=== PATIENT | male | born 1960 | race Caucasian/White ===

== ENCOUNTER → 2024-02-05 06:41 | Outpatient (REF) | payer MEDICARE, BC, SELFPAY ==
[2024-02-05 07:39] LABS: ALT (SGPT) 34 U/L (0-50); AST (SGOT) 38 U/L (17-59); Albumin 4.2 g/dl (3.5-5.0); Alkaline Phosphatase 57 U/L (38-126); Blood Urea Nitrogen 19 mg/dl (9-20); Calcium 9.1 mg/dl (8.4-10.2); Carbon Dioxide 27 mmol/L (22-30); Chloride 107 mmol/L (98-107); Glucose 115 mg/dl (70-99); HDL Cholesterol 78 mg/dl; LDL Cholesterol, Calculated 104 mg/dl; Potassium 4.4 mmol/L (3.5-5.1); Sodium 137 mmol/L (135-145); Total Bilirubin 0.4 mg/dl (0.2-1.3); Total Cholesterol 192 mg/dl (50-199); Total Protein 6.7 g/dl (6.3-8.2); Triglyceride 51 mg/dl (10-149); Very Low Density Lipoprotein 10 mg/dl (0-30); eGFR > 60.00
[2024-02-05 11:05] LABS: Glycohemoglobin (HgbA1c) 5.5 % (4.0-5.6)
== END ==
LOC: REG 06:41
PROVIDERS: ATTENDING PHYSICIAN Nurse Practitioner Adult Health
DX: Z00.00 Encounter for general adult medical examination without abnormal findings (principal); E78.2 Mixed hyperlipidemia; R73.01 Impaired fasting glucose; I10 Essential (primary) hypertension
CPT/HCPCS: 36415; 80053; 80061; 83036

== ENCOUNTER → 2024-06-17 06:30 | Outpatient (REF) | payer MEDICARE, BC, SELFPAY ==
[2024-06-17 08:38] LABS: ALT (SGPT) 25 U/L (0-50); AST (SGOT) 34 U/L (17-59); Albumin 4.4 g/dl (3.5-5.0); Alkaline Phosphatase 60 U/L (38-126); Blood Urea Nitrogen 22 mg/dl (9-20); Calcium 9.6 mg/dl (8.4-10.2); Carbon Dioxide 24 mmol/L (22-30); Chloride 104 mmol/L (98-107); Glucose 100 mg/dl (70-99); Potassium 4.4 mmol/L (3.5-5.1); Sodium 140 mmol/L (135-145); Total Bilirubin 0.8 mg/dl (0.2-1.3); Total Cholesterol 190 mg/dl (50-199); Total Protein 6.7 g/dl (6.3-8.2); Triglyceride 55 mg/dl (10-149); Very Low Density Lipoprotein 11 mg/dl (0-30); eGFR > 60.00
[2024-06-17 09:27] LABS: Glycohemoglobin (HgbA1c) 5.3 % (4.0-5.6)
[2024-06-17 09:41] LABS: HDL Cholesterol 67 mg/dl; LDL Cholesterol, Calculated 112 mg/dl
== END ==
LOC: REG 06:30
PROVIDERS: ATTENDING PHYSICIAN Nurse Practitioner Adult Health; FAMILY PHYSICIAN Internal Medicine
DX: I10 Essential (primary) hypertension (principal); E78.2 Mixed hyperlipidemia; R73.03 Prediabetes
CPT/HCPCS: 36415; 80053; 80061; 83036

== ENCOUNTER → 2024-10-08 07:01 | Outpatient (REF) | payer MEDICARE, OTHER, SELFPAY ==
[2024-10-08 08:06] LABS: ALT (SGPT) 30 U/L (0-50); AST (SGOT) 37 U/L (17-59); Albumin 4.6 g/dl (3.5-5.0); Alkaline Phosphatase 64 U/L (38-126); Blood Urea Nitrogen 19 mg/dl (9-20); Calcium 9.5 mg/dl (8.4-10.2); Carbon Dioxide 29 mmol/L (22-30); Chloride 100 mmol/L (98-107); Glucose 103 mg/dl (70-99); HDL Cholesterol 92 mg/dl; Potassium 4.4 mmol/L (3.5-5.1); Sodium 135 mmol/L (135-145); Total Bilirubin 0.6 mg/dl (0.2-1.3); Total Cholesterol 227 mg/dl (50-199); Total Protein 7.2 g/dl (6.3-8.2); eGFR > 60.00
[2024-10-08 08:29] LABS: LDL Cholesterol, Calculated 124 mg/dl; Triglyceride 57 mg/dl (10-149); Very Low Density Lipoprotein 11 mg/dl (0-30)
[2024-10-08 08:36] LABS: PSA, Total - Screen 2.49 ng/ml (0.0-4.0)
[2024-10-08 09:37] LABS: Glycohemoglobin (HgbA1c) 5.4 % (4.0-5.6)
== END ==
LOC: REG 07:01
PROVIDERS: ATTENDING PHYSICIAN Nurse Practitioner Adult Health
DX: I10 Essential (primary) hypertension (principal); R73.03 Prediabetes; Z12.5 Encounter for screening for malignant neoplasm of prostate; E78.2 Mixed hyperlipidemia
CPT/HCPCS: 36415; 80053; 80061; 83036; G0103

== ENCOUNTER → 2025-02-10 06:51 | Outpatient (REF) | payer MEDICARE, OTHER, SELFPAY ==
[2025-02-10 08:10] LABS: ALT (SGPT) 35 U/L (0-50); AST (SGOT) 36 U/L (17-59); Albumin 4.6 g/dl (3.5-5.0); Alkaline Phosphatase 53 U/L (38-126); Blood Urea Nitrogen 18 mg/dl (9-20); Calcium 9.4 mg/dl (8.4-10.2); Carbon Dioxide 29 mmol/L (22-30); Chloride 103 mmol/L (98-107); Glucose 113 mg/dl (70-99); HDL Cholesterol 78 mg/dl; LDL Cholesterol, Calculated 120 mg/dl; Potassium 4.1 mmol/L (3.5-5.1); Sodium 139 mmol/L (135-145); Total Bilirubin 0.6 mg/dl (0.2-1.3); Total Cholesterol 212 mg/dl (50-199); Triglyceride 73 mg/dl (10-149); Very Low Density Lipoprotein 14 mg/dl (0-30); eGFR > 60.00
[2025-02-10 08:55] LABS: Glycohemoglobin (HgbA1c) 5.6 % (4.0-5.6)
== END ==
LOC: REG 06:51
PROVIDERS: ATTENDING PHYSICIAN Nurse Practitioner Adult Health
DX: E78.2 Mixed hyperlipidemia (principal); I10 Essential (primary) hypertension; R73.01 Impaired fasting glucose; R03.0 Elevated blood-pressure reading, without diagnosis of hypertension; E78.5 Hyperlipidemia, unspecified
CPT/HCPCS: 36415; 80053; 80061; 83036